=== PATIENT | female | born 1965 | race Caucasian/White ===

== ENCOUNTER 2020-12-26 16:24 | Emergency (ER) | payer MEDICAID ==
[~2020-12-26] VITALS: Ht 162.6 cm; Wt 59.4 kg
--- NOTE | 2020-12-26 17:12 | NUR ---
[id number] C/O SYNCOPE WHILE DRINKING IN A BAR. DENIES TRAUMA OR HITTING HEAD TO ANY SURFACES. AILYN HX OF CARDIAC ISSUES. PT IS HYPOTENSIVE, BP 88/64. ON MONITOR.
[2020-12-26] MEDS ORDERED: IV NS 0.9% 1,000 ML BAG IV ONE (17:30)
[2020-12-26 17:45] LABS: BASOPHILS # (AUTO) 0.1 K/uL (0.0-0.2); BASOPHILS % (AUTO) 0.8 % (0.0-2.0); EOSINOPHILS % (AUTO) 1.2 % (0.0-6.0); HEMATOCRIT 38 % (33-45); HEMOGLOBIN 12.4 g/dL (11.5-14.8); LYMPHOCYTES # (AUTO) 1.1 K/uL (0.8-4.8); LYMPHOCYTES % (AUTO) 15.4 % (20.0-44.0); MEAN CORPUSCULAR HGB CONC 33 g/dl (31.0-36.0); MEAN CORPUSCULAR VOLUME 97 fL (82-100); MONOCYTES # (AUTO) 0.7 K/uL (0.1-1.30); MONOCYTES % (AUTO) 9.9 % (2.0-12.0); NEUTROPHILS # (AUTO) 5.2 K/uL (1.8-8.9); NEUTROPHILS % (AUTO) 72.7 % (43.0-81.0); PLATELET COUNT (AUTO) 263 K/uL (150-450); RED BLOOD CELL COUNT(AUTO) 3.87 MIL/uL (4.0-5.2); WHITE BLOOD COUNT (AUTO) 7.2 K/uL (4.3-11.0)
[2020-12-26 17:57] LABS: MAGNESIUM 1.8 mg/dL (1.8-2.4)
[2020-12-26 18:03] LABS: ALANINE AMINOTRANSFERASE 37 U/L (12-78); ALBUMIN 3.6 g/dL (3.4-5.0); ALKALINE PHOSPHATASE 74 U/L (46-116); ASPARTATE AMINOTRANSFERASE 24 U/L (15-37); BILIRUBIN,DIRECT 0.1 mg/dL (0.0-0.2); BILIRUBIN,TOTAL 0.4 mg/dL (0.2-1.0); CALCIUM, SERUM 8.8 mg/dL (8.5-10.1); CARBON DIOXIDE 23 mmol/L (21-32); CHLORIDE 102 mmol/L (98-107); CREATININE 1.2 mg/dL (0.6-1.3); GLUCOSE 138 mg/dL (74-106); SODIUM SERUM 139 mmol/L (136-145); TOTAL PROTEIN, SERUM 6.6 g/dL (6.4-8.2); UREA NITROGEN, BLOOD 12 mg/dL (7-18)
[2020-12-26 18:05] LABS: POTASSIUM 2.6 mmol/L (3.5-5.1)
[2020-12-26] MEDS ORDERED: IV NS 0.9% 1,000 ML IV ONE (18:30)
[2020-12-26] MEDS ORDERED: POTASSIUM CHLORIDE 20 MEQ TAB.PRT.SR PO ONE ×2 (18:30→18:53)
[2020-12-26] MEDS ORDERED: POTASSIUM CL. PREMIX PERIPHER. 50 ML ONE ×2 (18:52→19:29)
--- NOTE | 2020-12-26 18:57 | NUR ---
CALLED [facility] [phone]
--- NOTE | 2020-12-26 19:06 | NUR ---
IV FLUIDS RUNNING
[2020-12-26] MEDS: POTASSIUM CL. PREMIX PERIPHER. 50 ML IV SCH ×2 (19:26→20:25)
--- NOTE | 2020-12-26 19:30 | NUR ---
dr tamayo on the phone w/ marcella LEMUS
--- NOTE | 2020-12-26 19:41 | NUR ---
RECIEVED REPORT FOR ALO PT AWAKE AND ALERT BREATHING EVEN AND UNLABORED. PT ON MONITOR AND PULSE OX V/S STABLE.
--- NOTE | 2020-12-26 20:08 | NUR ---
[facility]HEAL FROM [facility] CALLED PT ACCEPTED TO [facility] UNDER DR. FENG CALL [phone] [facility] AT 2100
--- NOTE | 2020-12-26 20:29 | NUR ---
CALLED FOR REPORT SPOKE TO BELL
--- NOTE | 2020-12-26 20:41 | NUR ---
[facility] AT BED SIDE TO TRANSFER THE PT
[2020-12-26 20:46] VITALS: BP 122/79
--- NOTE | 2020-12-26 20:46 | NUR ---
PT TRANSFERRED VIA [facility] VITAL STABLE AT TIME OF TRANSPORT
== END 2020-12-26 20:46 | disposition short-term general hospital (02) ==
LOC: ER 16:28
DX: R55 Syncope and collapse (principal); E87.6 Hypokalemia; E86.0 Dehydration; F10.10 Alcohol abuse, uncomplicated; Y90.6 Blood alcohol level of 120-199 mg/100 ml; Z20.822 Contact with and (suspected) exposure to COVID-19; R94.31 Abnormal electrocardiogram [ECG] [EKG]; E78.5 Hyperlipidemia, unspecified; I10 Essential (primary) hypertension
CPT/HCPCS: 36415; 70450; 80048; 80076; 80320; 82962; 83735; 84484; 85025; 87426; 93005; 96361; 96365; 96366; 99291; C9803; J3480 ×2; J7030 ×2; G0480